=== PATIENT | female | born 2000 | race African-American/Black ===

== ENCOUNTER 2019-05-10 16:53 | Inpatient (IN) | payer BC ==
[2019-05-10 18:16] LABS: ABS Eosinophils 0.1 10^3/ul (0-0.6); ABS Lymphocytes 2.5 10^3/ul (1.0-4.8); ABS Monocytes 0.5 10^3/ul (0-0.8); ABS Neutrophils 1.4 10^3/ul (1.5-7.7); Eosinophil % 1.6 %; Hematocrit 34 % (35-47); Hemoglobin 12.1 g/dL (12.0-16.0); Lymphocyte % 55.8 %; Mean Corpuscular HGB Conc 36 g/dL (31-36); Mean Corpuscular Hemoglobin 30 pg (27-31); Mean Corpuscular Volume 83 fL (80-97); Mean Platelet Volume 9.5 fL (7.4-10.4); Nucleated Red Blood Cells % 0.1; Platelet Count 245 10^3/uL (150-450); Red Blood Count 4.12 10^6 /uL (3.70-4.87); Red Cell Distribution Width 16 % (10-15); White Blood Count 4.5 10^3/uL (3.5-10.8)
--- NOTE | 2019-05-10 18:34 | ED ---
Psychiatric Complaint - HPI Summary HPI Summary: Patient is a 18 y/o F presenting to the ED for a psychiatric complaint. Patient admits SI and panic attacks. On 05/07/19, patient states she was in class when she suddenly had chest tightness. Patient was later seen at [facility] to assess the chest tightness and told the chest tightness was likely due to anxiety. At that time, she was prescribed Clonazepam. On 05/08/19, patient was sitting in her bed in all day and had recurrent panic attacks. At 15:00 on 05/09, patient had an appointment with a mental health counsellor and was recommended to be seen at [facility]. She reports SI in the past. Patient has a plan to cut her wrists or overdose on pills. She denies an attempt. Patient takes Lexopro. The chest tightness has since resolved. She denies a possibility of . Patient denies alcohol, tobacco, or drug use. Any significant PSHx is denied. Patients medication reviewed this visit. - History Of Current Complaint Chief Complaint: EDSuicidal Time Seen by Provider: 05/10/19 17:06 Hx Obtained From: Patient Onset/Duration: Sudden Onset, Still Present Timing: Constant Severity Initially: Moderate Severity Currently: Moderate Character: Depressed Aggravating Factor(s): Nothing Alleviating Factor(s): Nothing Related History: Positive For: Prior Psychiatric Issues Has Suicidal: Reports: Thoughts, With A Plan. Denies: Has Prior Attempt(s) - Allergies/Home Medications Allergies/Adverse Reactions: Allergies Allergy/AdvReac Type Severity Reaction Status Date / Time No Known Allergies Allergy Verified 05/10/19 16:58 Home Medications: Home Medications Ativan 0.5 MG TAB 0.5 mg PO BID 05/10/19 [History Confirmed 05/10/19] Iron 324 mg PO DAILY 05/10/19 [History Confirmed 05/10/19] Lexapro 10 mg 10 mg PO DAILY 05/10/19 [History Confirmed 05/10/19] PMH/Surg Hx/FS Hx/Imm Hx Previously Healthy: Yes Cardiovascular History: Denies: Hx Hypercholesterolemia, Hx Hypertension Sensory History: Denies: Hx Legally Blind, Hx Deafness Opthamlomology History: Denies: Hx Legally Blind EENT History: Denies: Hx Deafness Psychiatric History: Reports: Hx Anxiety, Hx Depression, Hx [facility] Tx - Surgical History Surgical History: None Surgery Procedure, Year, and Place: None Infectious Disease History: No Infectious Disease History: Denies: Traveled Outside the [place] in Last 30 Days - Family History Known Family History: Negative: Diabetes - Social History Occupation: Student Lives: Alone Alcohol Use: None Hx Substance Use: No Substance Use Type: Reports: None Hx Tobacco Use: No Smoking Status (MU): Never Smoked Tobacco Review of Systems Positive: Chest Pain - Chest tightness, resolved Psychological: Other - Positive SI with a plan All Other Systems Reviewed And Are Negative: Yes Physical Exam Triage Information Reviewed: Yes Vital Signs On Initial Exam: Initial Vitals Temp Pulse Resp BP Pulse Ox 98.7 F 94 16 118/76 98 05/10/19 16:58 05/10/19 16:58 05/10/19 16:58 05/10/19 16:58 05/10/19 16:58 Vital Signs Reviewed: Yes Procedures - Sedation Patient Received Moderate/Deep Sedation with Procedure: No Diagnostics - Vital Signs Vital Signs Temp Pulse Resp BP Pulse Ox 05/10/19 16:58 98.7 F 94 16 118/76 98 - Laboratory Lab Results: Lab Results 05/10/19 Range/Units 18:02 WBC 4.5 (3.5-10.8) 10^3/uL RBC 4.12 (3.70-4.87) 10^6 /uL Hgb 12.1 (12.0-16.0) g/dL Hct 34 L (35-47) % MCV 83 (80-97) fL MCH 30 (27-31) pg MCHC 36 (31-36) g/dL RDW 16 H (10-15) % Plt Count 245 (150-450) 10^3/uL MPV 9.5 (7.4-10.4) fL Neut % (Auto) 30.3 % Lymph % (Auto) 55.8 % [place] % (Auto) 12.0 % Eos % (Auto) 1.6 % Baso % (Auto) 0.3 % Absolute Neuts (auto) 1.4 L (1.5-7.7) 10^3/ul Absolute Lymphs (auto) 2.5 (1.0-4.8) 10^3/ul Absolute Monos (auto) 0.5 (0-0.8) 10^3/ul Absolute Eos (auto) 0.1 (0-0.6) 10^3/ul Absolute Basos (auto) 0.0 (0-0.2) 10^3/ul Absolute Nucleated RBC 0.0 10^3/ul Nucleated RBC % 0.1 Result Diagrams: 05/10/19 18:02 05/10/19 18:02 Lab Statement: Any lab studies that have been ordered have been reviewed, and results considered in the medical decision making process. Re-Evaluation - Re-Evaluation First Eval Re-Evaluation Time: 18:50 Change: Unchanged Comment: At 18:50, patient is medically cleared for a mental health evaluation. Discharge ED - Sign-Out/Discharge Documenting (check all that apply): Sign-Out Patient Signing out patient TO: Jenniffer Hensley - Patient is a sign out at 19: 00 on 05/10/[address] Mattie Arriola to Dr. Jenniffer Hensley at shift change, pending mental health evaluation and disposition. - Discharge Plan Condition: Stable Referrals: [facility] - Omar [Primary Care Provider] - - Attestation Statements Document Initiated by Scribe: Yes Documenting Scribe: Abbey Torres Provider For Whom Scribe is Documenting (Include Credential): Mattie Arriola MD Scribe Attestation: Abbey Galeano, scribed for Mattie Arriola MD on 05/10/19 at 1910. Status of Scribe Document: Ready
[2019-05-10 18:39] LABS: ALT 13 U/L (7-52); AST 18 U/L (13-39); Albumin 4.5 g/dL (3.2-5.2); Albumin/Globulin Ratio 1.6 (1-3); Alkaline Phosphatase 48 U/L (34-104); Anion Gap 7 mmol/L (2-11); BUN/Creatinine Ratio 24.7 (8-20); Blood Urea Nitrogen 20 mg/dL (6-24); CO2 Carbon Dioxide 27 mmol/L (22-32); Calcium 9.4 mg/dL (8.6-10.3); Chloride 104 mmol/L (101-111); EGFR African American 110.2 (>60); EGFR Non-African American 91.1 (>60); Globulin 2.8 g/dL (2-4); Glucose 92 mg/dL (70-100); Potassium 3.6 mmol/L (3.5-5.0); Sodium 138 mmol/L (135-145); Total Protein 7.3 g/dL (6.4-8.9)
[2019-05-10 18:44] LABS: Alcohol < 10 mg/dL (<10); HCG Pregnancy < 0.60 mIU/mL; Salicylate < 2.50 mg/dL (<30)
[2019-05-10 18:54] LABS: Urine Appearance Cloudy; Urine Bilirubin Negative (Negative); Urine Blood Negative (Negative); Urine Color Yellow; Urine Glucose Negative (Negative); Urine Ketones Trace (Negative); Urine Nitrite Negative (Negative); Urine Protein Negative (Negative); Urine Specific Gravity 1.033 (1.010-1.030); Urine Urobilinogen Negative (Negative)
[2019-05-10 18:58] LABS: Urine Bacteria Absent (Absent); Urine Red Blood Cell Absent (Absent); Urine White Blood Cell Absent (Absent)
[2019-05-10 19:47] LABS: Urine Benzodiazepine Screen None Detected (None Detect); Urine Opiates Screen None Detected (None Detect)
--- NOTE | 2019-05-10 20:09 | ED ---
Progress - Progress Note Progress Note: The patient is a sign-out from Dr. Mattie Arriola MD, to Dr. Jenniffer Herrera MD, at change of shift at 1900 on 05/10/2019, pending psychiatric evaluation and disposition. Dr. Justice and the psychiatric team have evaluated the patients case and determined she is appropriate for admission. Re-Evaluation - Re-Evaluation First Eval Re-Evaluation Time: 18:50 Change: Unchanged Comment: At 18:50, patient is medically cleared for a mental health evaluation. Course/Dx - Course Course Of Treatment: The patient is a sign-out from Dr. Mattie Arriola MD, to Dr. Jenniffer Hensley MD, at change of shift at 1900 on 05/10/2019, pending psychiatric evaluation and disposition. Dr. Justice and the psychiatric team have evaluated the patients case and determined she is appropriate for admission. - Diagnoses Provider Diagnoses: Mood disorder - Provider Notifications Discussed Care Of Patient With: Jose Justice - psychiatry Time Discussed With Above Provider: 22:00 Instructed by Provider To: Other - Dr. Justice and the psychiatric team have evaluated the patients case and determined she is appropriate for admission. Discharge ED - Sign-Out/Discharge Documenting (check all that apply): Patient Departure - Patient admitted to [facility] by Dr. Justice., Receiving Sign-Out Receiving patient FROM: Mattie Arriola - Patient is a sign-out from Dr. Mattie Arriola MD, at 1900 on 05/10/2019, pending MHE and disposition. - Discharge Plan Condition: Stable Disposition[place] [place] Billing Disposition and Condition Condition: STABLE Disposition: Psychiatric Facility [facility] [place] - Attestation Statements Document Initiated by Darekibe: Yes Documenting Scribe: Adela Noble Provider For Whom Berta is Documenting (Include Credential): Dr. Jenniffer Hensley MD Scribe Attestation: Adela Galeano scribed for Dr. Jenniffer Hensley MD on 05/11/19 at 0557. Scribe Documentation Reviewed: Yes Provider Attestation: The documentation as recorded by the Adela fortune accurately reflects the service I personally performed and the decisions made by me, Dr. Jenniffer Hensley MD Status of Scribe Document: Viewed Procedures - Sedation Patient Received Moderate/Deep Sedation with Procedure: No
[2019-05-10 21:20] LABS: TSH (Thyroid Stimulating Horm) 2.03 mcIU/mL (0.34-5.60)
[2019-05-10 21:28] LABS: Acetaminophen < 15 mcg/mL
[2019-05-11] MEDS ORDERED: Acetaminophen TAB* 325 MG PO PRN (02:16)
[2019-05-11] MEDS ORDERED: Al Hydrox/Mg Hydrox/Simet LIQ* 30 ML UDC PO PRN (02:16)
[2019-05-11] MEDS: Vitamin THERAPEUTIC TAB PO SCH (09:43)
[2019-05-11] MEDS: Escitalopram * 10 MG TAB PO SCH (09:43)
[2019-05-11] MEDS ORDERED: clonazePAM TAB(*) 1 MG PO PRN (12:29)
--- NOTE | 2019-05-11 18:19 | HP ---
HISTORY AND PHYSICAL: DATE OF ADMISSION: 05/10/19 PROVIDER: Eliz Rico NP in Psychiatry. SUPERVISING PHYSICIAN: Romaine Burnette MD.* (DICTATED BY ELIZ RICO NP) JUSTIFICATION FOR ADMISSION: The patient is in need of 24-hour supervision and care secondary to suicidal ideation. CHIEF COMPLAINT: "I have had panic attacks for 3 years on and off, and sometimes I catch a break." HISTORY OF PRESENT ILLNESS: The patient is a 18-year-old single, black female with a history of depression and anxiety who arrives brought in by friends and is here on a voluntary status after having panic attacks that became unmanageable and that her coping strategies could no longer manage. Sophie is a sophomore at [employer] majoring in [employer]. Over the last month, panic attacks have been getting worse. Depression started in 12th grade summer into her freshman year of college. She tries to use distraction as the way to soothe her anxiety including watching TV, baking, going out with friends , and trying new foods. She is a member of 3 clubs, but these are all professional clubs including [employer] of [employer]grad[employer], Females in [employer], and a Production Club. She states that she has not gone to these meetings lately, however, due to stress. She also states she joined the [employer], but has not been able to attend those meetings either. She describes having obsessive thoughts about things that are negative about herself. Her sleep is difficult. She believes it is due to Lexapro and thus she takes it in the middle of the day. Her interests are reduced. She feels some guilt. Her energy is definitely lower. She is having a hard time concentrating and she is experiencing suicidal ideation. PAST PSYCHIATRIC HISTORY: She has no prior admissions. It does sound as though she went to a [facility] of some kind when in [place] and was given antianxiety medication (Valium) at some point in the past. She is currently being seen at [employer] by psychologist/CAPS counselor Jennifer. She is also seen by psychiatrist, Dr. Chad Valle. Previous psychiatric meds have included Valium, lorazepam, Klonopin, and Lexapro. PAST MEDICAL HISTORY: Unremarkable. TRAUMA HISTORY: Denied. FAMILY HISTORY: Denied. SUBSTANCE ABUSE: Denied. SOCIAL HISTORY: Sophie is a 18-year-old who is in her sophomore year at [employer]. She is taking 17 credits and finds that the stress from taking this many credits is too much. She and her family both acknowledge that she has perfectionistic traits. Her older brother who was visiting at the noon hour indicated that they do not put pressure on Sophie, but she puts pressure on herself. She agreed with that assessment and expressed a desire to be easy on herself, but also seemed a bit overwhelmed at that prospect. She is not partnered. She is not employed. She has no history. She has no legal problems. REVIEW OF SYSTEMS: The patient reports feeling fatigued. She denies shortness of breath, heat or cold intolerance, chest pain or abdominal pain. She denies neurological symptoms. She denies fevers or changes in weight. PHYSICAL EXAMINATION VITAL SIGNS: On 05/11/19 at 8 a.m., temperature is 97.4, pulse 72, respirations 18, O2 sat on room air 100%, blood pressure 114/66. Sophie declined physical exam based on her own personal decision that she was physically well and healthy. DIAGNOSTIC STUDIES/LAB DATA: Most data are within normal limits, exceptions include hematocrit low at 34, RDW high at 16, absolute neutrophils low at 1.4, BUN and creatinine ratio is high at 24.7. Urine specific gravity is high at 1.033, ketones trace, leukocyte esterase trace, urine ascorbic acid present. Her toxicology screen is free from drugs of abuse. MENTAL STATUS EXAMINATION: Sophie is a 18-year-old black woman with long lyudmila, wearing a [employer] T-shirt who is 5 feet 4 inches and 135 pounds. Her grooming is good. She sits quietly and anxiously still. She is calm and cooperative. Her speech is a normal rate, tone and volume. She is dysthymic. She has a constricted affect. The thought processes appear normal. Thought content is free of delusions. She is not homicidal. She is not suicidal on the unit although she was when she was brought to the hospital last night. She is not experiencing hallucinations. Her insight and judgment are good. She is alert and oriented x4. DIAGNOSES: Major depressive disorder, severe, and generalized anxiety disorder. IMPRESSION: Sophie is a 18-year-old woman who goes to [employer] and is taking 17 credits, which has become overwhelming for her and she no longer could manage it and thus developed a plan for suicide that was alarming enough for her counselor at [employer] to send her to the hospital for admission. PLAN: The patient is admitted to the adult behavioral health unit and placed on q.15-minute checks for her own safety. She is encouraged to participate in supportive milieu, individual, and group therapies. Estimated length of stay is 1 to 4 days. We will titrate medications to efficacy including stopping benzodiazepines and starting hydroxyzine and we will monitor her mood and thought content. Discharge planning will include family involvement and outpatient providers. ELIZ RICO, JEANMARIE [id number]/CPS #: [id number] JENNIFER
[2019-05-11] MEDS ORDERED: clonazePAM TAB(*) 1 MG PO SCH (21:00)
[2019-05-11] MEDS: hydrOXYzine HCL TAB* 50 MG PO PRN (21:00)
[2019-05-12] MEDS: Vitamin THERAPEUTIC TAB PO SCH (09:32)
[2019-05-12] MEDS: Escitalopram * 10 MG TAB PO SCH (09:32)
[2019-05-12 09:59] VITALS: BP 128/75
[2019-05-12] MEDS: hydrOXYzine HCL TAB* 50 MG PO PRN (13:35)
--- NOTE | 2019-05-12 22:22 | DS ---
DISCHARGE SUMMARY: DATE OF ADMISSION: 05/10/19 DATE OF DISCHARGE: 05/12/19 PROVIDER: Eliz Rico NP in Psychiatry. SUPERVISING PHYSICIAN: Dr. Romaine Burnette* (dictated by Eliz Rico NP). DIAGNOSIS: Major depressive disorder, severe. CONDITION AT THE TIME OF DISCHARGE: Improved, psychiatrically cleared, stable. Sophie participated in groups and was social with peers. Her family is agreeable to discharge, as is Sophie. She has done well here psychiatrically. She tolerated the continuation of Lexapro 10 and the addition of hydroxyzine 50 mg p.r.n., and she will be attending [facility]. MENTAL STATUS EXAM: At the time of discharge, Sophie is calm, cooperative, and makes good eye contact. She is alert and oriented x4. Her grooming is good. Her speech pace is normal. Her thought processes are logical. She is not psychotic or delusional. She denies AH, VH, SI, and HI. Insight and judgment are good. She is willing to follow up and she is urged and eager to see a therapist. DISCHARGE INSTRUCTIONS TO THE PATIENT: A. Medications: 1. Lexapro 10 mg daily. 2. Hydroxyzine 50 mg p.o. q.4 hours p.r.n. anxiety, dispensed 45 tablets to [facility]. B. Diet is regular with the allergy of EGG YOLK. C. Activities as tolerated. She is a smoker. There are no studies pending at the time of discharge. D. Followup care: She has appointments at [facility]. She has a counseling appointment today at 4 p.m. with Alfreda Benoit on level 3. She has a psychiatry appointment tomorrow, 05/13/19, with Dr. Valle on level 7. E. Disposition: She is being discharged to her home and [place], [place]. F. Substance abuse followup is not indicated. HOSPITAL COURSE: Part A: Chief Complaint: "I have had panic attacks for 3 years, on and off, and sometimes I catch a break." The patient is a 18-year-old single black female with a history of depression and anxiety, who arrives brought in by friends and is her on a voluntary status after having panic attacks that became unmanageable and that her coping strategies could no longer manage. Sophie is a sophomore at [employer] majoring in [employer]. Over the last month, panic attacks have been getting worse. Depression started in 12th grade summer and then went into her freshman year of college and continued. She tries to use distraction as the way to sooth her anxiety including watching TV, baking, going out with friends, and trying new foods. She is a member of 3 clubs, but these are all professional clubs including [employer] of [employer], Females in [employer], and a Production Club. She states that she has not gone to these meetings lately, however, due to stress. She also states she joined the [employer], but has not been able to attend those meetings either. She describes having obsessive thoughts about things that are negative about herself. Her sleep is difficult. She believes it is due to Lexapro and thus she takes it in the middle of the day. Her interests are reduced. She feels some guilt. Her energy is lower. She is having a hard time concentrating and she is experiencing suicidal ideation. Part B: Psychiatric treatment was rendered. Sophie was admitted to the Adult Behavioral Unit and placed on 15-minute checks for her own safety. She was safe on all checks. She did well on the unit and she went to groups. She interacted with peers well, although she did appear shy some of the time. She tolerated the addition of hydroxyzine and the continuation of Lexapro. I discontinued all benzodiazepines and she performed well under the stress of being here in the hospital including the time when her family came where she appeared exceptionally stressed. I did meet with her family, specifically her mom, her dad, and her brother. Her brother consistently asked questions such as how did this begin, what trigged this, how do I make it stop. Sophie very graciously allowed him to ask these questions and when we discussed the potential answers to these questions later when the family was gone, she smiled and said that she understood that he just wants to solve the problem, but that there is no simple answer to why she is so distressed and depressed. Her mother was very understanding and moved to tears at times when talking about her daughter's illness. Her father was very quiet. A nutrition consult was entered for Sophie because she has an EGG allergy and at one point recently was a vegan. She agreed with this structural test engineer to follow choices and options that were available for her on the buffet and to accept things that were given to her specifically to make her nutrition needs meet. Sophie is much improved. She arrived with suicidal thoughts and they were gone the next day once she had some sleep and was away from her stressors. She acknowledges that she is taking on a large load by taking 17 credits at [employer] and working in [employer]. She, however, feels as though she has some new coping strategies and understands better what she needs to do for herself to take care and be gentle with herself. She is future oriented. She is no longer suicidal. She asked excellent questions regarding her discharge and what the plan would be in the future. She is interested in therapy and in fact may be interested in seeking therapy more often than [employer] can accommodate. She was explained that there are therapists in the community who may be willing to take her insurance and see her more often. ELIZ RICO, JEANMARIE [id number]/[facility] #: [id number] JENNIFER
== END 2019-05-12 15:00 | disposition home or self-care (01) | DRG 751 ==
LOC: ED 16:53 → BSU 23:37
PROVIDERS: ADMIT Psychiatry & Neurology Psychiatry; ATTEND Psychiatry & Neurology Psychiatry
DX: F32.2 Major depressive disorder, single episode, severe without psychotic features (principal); R45.851 Suicidal ideations; F41.1 Generalized anxiety disorder; Z79.899 Other long term (current) drug therapy; Z28.21 Immunization not carried out because of patient refusal
CPT/HCPCS: 36415; 80053; 80307; 80320; 80329; 81003; 81015; 83605; 84443; 84702; 85025; 85660; 87086; 99284; A9270-GY; G0480